=== PATIENT | male | born 1985 | race Caucasian/White ===

== ENCOUNTER 2016-07-31 22:58 | Emergency (ER) | payer SELFPAY ==
[~2016-07-31] VITALS: Ht 177.8 cm; Wt 85.3 kg
[~2016-07-31 22:58] MED LIST: AMOX1TAB12 PO; DOXY100T PO; LACT1CAP24 PO
[2016-07-31 22:59] VITALS: BP 153/106
== END 2016-08-01 00:42 | disposition home or self-care (01) ==
LOC: ED 08-01 00:36
DX: S83.91XA Sprain of unspecified site of right knee, initial encounter (principal); M25.461 Effusion, right knee; X50.1XXA Overexertion from prolonged static or awkward postures, initial encounter; Y93.89 Activity, other specified; Y99.8 Other external cause status; Y92.009 Unspecified place in unspecified non-institutional (private) residence as the place of occurrence of the external cause
CPT/HCPCS: 29505

== ENCOUNTER 2018-07-20 07:37 | Emergency (ER) | payer MEDICAID, OTHER ==
[~2018-07-20] VITALS: Ht 177.8 cm; Wt 82.1 kg
[2018-07-20] MEDS ORDERED: DIPH,PERTUSS(ACELL),TET VAC/PF 0.5 ML IM-VACC ONE ×2 (08:24→08:30)
[2018-07-20] MEDS ORDERED: KETOROLAC 30 MG/1 ML ONE (08:24)
[2018-07-20] MEDS ORDERED: SODIUM CHLORIDE FLUSH 10ML SYR IVF ONE (08:30)
[2018-07-20] MEDS ORDERED: KETOROLAC 30 MG/1 ML IVPush ONE (08:30)
[2018-07-20] MEDS ORDERED: SODIUM CHLORIDE 0.9% 1,000ML IVBOLUS ONE (09:00)
[2018-07-20] MEDS ORDERED: CLINDAMYCIN PMX 600MG/50ML 50 ML IV ONE (09:30)
[2018-07-20 09:58] LABS: BASOPHILS # (AUTO) 0.03 x10^3/uL (0-0.1); BASOPHILS % (AUTO) 0 % (0-1); EOSINOPHILS # (AUTO) 0.11 x10^3/uL (0-0.4); EOSINOPHILS % (AUTO) 1 % (1-7); LYMPHOCYTES # (AUTO) 1.45 x10^3/uL (1-3.4); LYMPHOCYTES % (AUTO) 12 % (22-44); MD NO; MEAN CORPUSCULAR HEMOGLOBIN 25.8 pg (27.5-34.5); MEAN CORPUSCULAR HGB CONC 32.7 g/dL (33.2-36.2); MEAN PLATELET VOLUME 8.1 fL (7.4-10.4); MONOCYTES % (AUTO) 8 % (2-9); NEUTROPHILS % (AUTO) 79 % (42-75); PLATELET COUNT 353 x10^3/uL (130-400); RED BLOOD COUNT 5.25 x10^6/uL (4.38-5.82); RED CELL DISTRIBUTION WIDTH 14.1 % (9.4-14.8)
[2018-07-20 10:08] LABS: ALBUMIN 3.6 g/dL (3.4-5.0); ANION GAP 5 mmol/L (5-15); CALCIUM 8.8 mg/dL (8.5-10.1); CHLORIDE 105 mmol/L (98-107)
[2018-07-20 10:10] LABS: CREATININE 1.09 mg/dL (0.7-1.3)
[2018-07-20] MEDS ORDERED: CLINDAMYCIN PMX 600MG/50ML 50 ML ONE (10:26)
[2018-07-20 10:34] VITALS: BP 136/84
== END 2018-07-20 11:45 | disposition home or self-care (01) ==
LOC: ED 08:58
DX: L03.113 Cellulitis of right upper limb (principal); L03.114 Cellulitis of left upper limb
CPT/HCPCS: 36415; 80048; 82040; 83605; 85025; 87040; 96365; 96375; 99283; J1885; J7030